=== PATIENT | female | born 1940 | race Caucasian/White ===

== ENCOUNTER 2023-02-02 15:41 | Emergency (ER) | payer MEDICARE, OTHER ==
[~2023-02-02] VITALS: Ht 162.6 cm; Wt 72.6 kg
[2023-02-02 17:55] LABS: Source, Urine Clean Catch
[2023-02-02] MEDS ORDERED: AMLO5 PO (18:00)
[2023-02-02] MEDS ORDERED: ACET500 PO (18:00)
[2023-02-02] MEDS ORDERED: NITR.4SL SL (18:00)
[2023-02-02] MEDS ORDERED: OXYC5 PO (18:01)
[2023-02-02] MEDS ORDERED: SERT25 PO (18:01)
[2023-02-02] MEDS ORDERED: ZOCOR20 MG PO (18:01)
[2023-02-02] MEDS ORDERED: SENNA LAXATIVE8.6 MG PO (18:01)
[2023-02-02] MEDS ORDERED: VALS80 PO (18:02)
[2023-02-02] MEDS ORDERED: WARF5 PO (18:02)
[2023-02-02 18:30] VITALS: BP 129/70
[2023-02-02 18:30] LABS: Appearance, Urine Cloudy (Clear); Bilirubin, Urine Neg (Neg); Blood, Urine 1+ (Neg); Color, Urine Yellow (P-Yellow); Glucose Qualitative, Urine Neg (Neg); Ketones, Urine Neg (Neg); Leukocyte Esterase, Urine 2+ (Neg); Nitrite, Urine Neg (Neg); Protein, Urine 2+ (Neg); Urobilinogen, Urine 1+ (Normal)
[2023-02-02 19:11] LABS: BASOPHILS ABSOLUTE AUTO 0.06 K/mm3 (0.00-0.23); BASOPHILS PERCENT AUTO 0 % (0-2); EOSINOPHILS ABSOLUTE AUTO 0.05 K/mm3 (0.00-0.68); EOSINOPHILS PERCENT AUTO 0 % (0-6); Hematocrit 35.9 % (33.0-51.0); Hemoglobin 12.1 g/dL (11.5-16.0); IMMATURE GRAN ABSOLUTE AUTO 0.04 K/mm3 (0.00-0.10); IMMATURE GRAN PERCENT AUTO 0 % (0-1); LYMPHOCYTES ABSOLUTE AUTO 1.74 K/mm3 (0.84-5.20); LYMPHOCYTES PERCENT AUTO 13 % (21-46); MONOCYTES ABSOLUTE AUTO 1.07 K/mm3 (0.16-1.47); MONOCYTES PERCENT AUTO 8 % (4-13); Mean Corpuscular HGB 29.7 pg (26.0-34.0); Mean Corpuscular HGB Conc 33.7 g/dL (31.5-36.5); Mean Corpuscular Volume 88 fL (80-100); Mean Platelet Volume 9.5 fL (9.1-12.4); NEUTROPHILS ABSOLUTE AUTO 10.45 K/mm3 (1.96-9.15); NEUTROPHILS PERCENT AUTO 78 % (41-73); Platelet Count 327 K/mm3 (150-400); RDW Coefficient Variation 14.3 % (11.7-14.2); RDW Standard Deviation 46.3 fL (35.1-46.3); Red Blood Cell Count 4.07 M/mm3 (3.80-5.20); White Blood Cell Count 13.41 K/mm3 (4.00-11.30)
[2023-02-02 19:34] LABS: Albumin, Blood 3.3 g/dL (3.4-5.0); Albumin/Globulin Ratio 0.8 (0.8-1.8); Bilirubin, Total 0.3 mg/dL (0.1-1.0); Bun/Creatinine Ratio 18.7 (12.0-20.0); Calcium, Blood 8.9 mg/dL (8.5-10.1); Creatinine, Blood 0.86 mg/dL (0.40-1.00); Globulin, Blood 4.3 g/dL (2.2-4.0); Potassium, Blood 4.2 mmol/L (3.5-5.5); Total Protein, Blood 7.6 g/dL (6.4-8.2)
[2023-02-02 19:45] LABS: Bacteria Many /hpf; Squamous Epithelial Cells Few /hpf (Few); White Blood Cells, Urine 25-50 /hpf (0-5)
[2023-02-02] MEDS ORDERED: CEPH500 PO (20:43)
== END 2023-02-02 21:20 | disposition home or self-care (01) ==
LOC: ER 15:41
PROVIDERS: Student in an Organized Health Care Education/Training Program
DX: N39.0 Urinary tract infection, site not specified (principal); R55 Syncope and collapse; Z79.899 Other long term (current) drug therapy; Z79.01 Long term (current) use of anticoagulants
CPT/HCPCS: 80053; 81001; 84484; 85025; 93005; 93010; 96365; 99284-25; J0696; P9612